=== PATIENT | female | born 2000 | race Caucasian/White ===

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

== ENCOUNTER 2021-06-25 22:52 | Emergency (ER) | payer SELFPAY ==
[~2021-06-25] VITALS: Ht 152.4 cm; Wt 56.7 kg
== END 2021-06-25 23:10 | disposition home or self-care (01) ==
LOC: ER 23:03
DX: U07.1 COVID-19 (principal); R06.02 Shortness of breath; R05.9 Cough, unspecified; F41.9 Anxiety disorder, unspecified
CPT/HCPCS: 99282